=== PATIENT | male | born 1955 | race Caucasian/White ===

== ENCOUNTER 2023-12-09 08:34 | Outpatient (CLI) | payer MEDICARE, OTHER, SELFPAY ==
--- NOTE | 2023-12-09 08:38 | CT_ITS ---
WS: [id number] CT CALCIUM SCORE REASON FOR VISIT: CHEST PAIN ON EXERTION; Coronary artery disease risk assessment COMPARISON: None TECHNIQUE: Noncontrast coronary CT in combination with quantitative analysis performed on a separate workstation were used to determine CACS (Agatston score) TOTAL EXAM DOSE: 102.94 mGy.cm ECG GATING: Prospective SCAN RANGE: Pulmonary artery bifurcation to Inferior aspect of heart COMPLICATIONS: None FINDINGS: Technical Quality/Examination Quality: Good Limitaiton: None OVERALL SCORES Total calcium score: 78 Total volume score: 92 mm3 Percentile: 25th-50th% ARTERY SCORES Left main coronary artery: 16 Left anterior descending artery: 8 Left circumflex artery: 25 Right coronary artery: 25 OTHER FINDINGS: Mediastinum: Normal. Thoracic aorta: Normal. Lungs: Normal. Upper Abdomen: Normal. MINIMAL: 1-10 MILD: 11-100 MODERATE: 101-400 SEVERE:>400 CT/CT heart w calcium score 10588 IMPRESSION: Calcium score of 78 is between the 25th and 50th percentile for mal es between the ages of 65-69 GRADING OF CORONARY ARTERY DISEASE (BASED ON TOTAL CALCIUM SCORE) NO EVIDENCE OF CAD: 0 calcium score
== END 2023-12-09 08:35 | disposition home or self-care (01) ==
LOC: RAD 08:34
PROVIDERS: Family Provider Student in an Organized Health Care Education/Training Program; PCP Student in an Organized Health Care Education/Training Program; Visit Provider Family Medicine
DX: R07.89 Other chest pain (principal); I25.10 Atherosclerotic heart disease of native coronary artery without angina pectoris
CPT/HCPCS: 75571

== ENCOUNTER → 2025-05-16 09:34 | Outpatient (BNVA) | payer MEDICARE, OTHER, SELFPAY | PROVIDERS: Family Provider Student in an Organized Health Care Education/Training Program; PCP Student in an Organized Health Care Education/Training Program; Visit Provider Dermatology | DX: L57.0 Actinic keratosis (principal); L73.9 Follicular disorder, unspecified; L30.8 Other specified dermatitis; L82.1 Other seborrheic keratosis; L73.8 Other specified follicular disorders | CPT/HCPCS: 99204 ==